=== PATIENT | female | born 1955 | race Caucasian/White ===

== ENCOUNTER → 2016-12-29 | Outpatient (CLI) | payer MEDICARE ==
[~2016-12-29] MED LIST: ALLERGY SHOT; BUMETANIDE2 MG PO; FENOFIBRATE145 MG PO; FLEXERIL10 MG PO; FLONASE 50 MCG/16 GM NOSE; LEVOTHROID (S200 MCG PO; LEXAPRO20 MG PO; MAG-OX-400(241400 MG PO; MIRALAX PO527 GM/BOT PO; MIRAPEX1 MG PO; MOBIC15 MG PO; NEURONTIN600 MG PO; NORCO 5-325 TA1 EACH PO; OSTEO BI-FLEX1 EAC2 PO; POTASSIUM CHLO20 ME1 PO; PROAIR HFA8.5 GM INH; RESTASIS1 EACH OPHTH; THERA-VITE W/ B1 TAB PO; VITAMIN D31000 UNI1 PO; VITAMIN D35000 UNI1 PO; [UNRECOGNIZED DRUG - OTHER]
== END | disposition disaster alternative care site (69) ==
LOC: GNJRC 10:41
DX: Z01.812 Encounter for preprocedural laboratory examination (principal); M17.11 Unilateral primary osteoarthritis, right knee